=== PATIENT | male | born 1990 | race Caucasian/White ===

== ENCOUNTER 2019-05-31 17:42 | Emergency (ER) | payer SELFPAY ==
[~2019-05-31] VITALS: Ht 170.2 cm; Wt 81.6 kg
[2019-05-31] MEDS ORDERED: FLUORESCEIN 1MG EYE STRIP. OD ONE (18:00)
[2019-05-31] MEDS ORDERED: TETRACAINE 0.5% OPHTH SOLUTION 4ML BOTTLE. OD ONE (18:00)
[2019-05-31 18:05] VITALS: BP 155/72
[2019-05-31] MEDS ORDERED: TETRACAINE 0.5% OPHTH SOLUTION 4ML BOTTLE. ONE (18:18)
[2019-05-31] MEDS ORDERED: FLUORESCEIN 1MG EYE STRIP. ONE (18:18)
[2019-05-31] MEDS ORDERED: POLY10DR EACHEYE (18:38)
--- NOTE | 2019-05-31 18:48 | PHYS DOC ---
Past History Past Medical History: No Pertinent History Past Surgical History: No Surgical History Drug Use: None Adult General Chief Complaint Chief Complaint: EYE PROBLEMS HPI HPI Patient is a 28-year-old male presenting with injury to the right eye he was drilling some metal he wore eye protection but he felt something go into his eye increased pain and redness this is happening to him multiple times before does not wear contacts see nurse's note for complete visual acuity was 20 over 20 in 1 eye and 20/40 in the other Current Medications Current Medications Current Medications Medications (Trade) Dose Ordered Sig/Mariah Start Time Stop Time Status Last Admin Dose Admin Fluorescein Sodium (Ful-Elda 1mg) 1 strip 1X ONCE 05/31/19 18:00 05/31/19 18:01 UNV 05/31/19 18:00 1 STRIP Tetracaine HCl (Tetracaine) 1 drop 1X ONCE 05/31/19 18:00 05/31/19 18:01 UNV 05/31/19 18:00 1 DROP Physical Exam Physical Exam Constitutional: Well developed, well nourished, no acute distress, non-toxic appearance. [] HENT: Normocephalic, atraumatic, bilateral external ears normal, oropharynx moist, no oral exudates, nose normal. [] Eyes: Conjunctivae injected on the right no proptosis there is a very small m etal appearing foreign body at 10:00 on the cornea there is no significant associated corneal abrasion it was removed with an ear curet under close guidance visualization after tetracaine. Patient tolerated very well. Polytrim prescription will be provided lids everted no foreign body there either Extremities: No tenderness, no cyanosis, no clubbing, ROM intact, no edema. [] Neurologic: Alert and oriented X 3, normal motor function, normal sensory function, no focal deficits noted. [] Psychologic: Affect normal, judgement normal, mood normal. [] Current Patient Data Vital Signs Vital Signs Date Time Temp Pulse Resp B/P (MAP) Pulse Ox O2 Delivery O2 Flow Rate FiO2 05/31/19 18:05 97.8 62 22 100 Room Air EKG EKG [] Radiology/Procedures Radiology/Procedures [] Course & Med Decision Making Course & Med Decision Making Pertinent Labs and Imaging studies reviewed. (See chart for details) [] Dragon Disclaimer Dragon Disclaimer This electronic medical record was generated, in whole or in part, using a voice recognition dictation system. Departure Departure: Impression: Primary Impression: Foreign body in cornea Disposition: 01 HOME, SELF-CARE Condition: STABLE Patient Instructions: Eye - Foreign Body, [id number]-vf-[id number] Scripts Polymyxin B Sulf/Trimethoprim (POLYTRIM EYE DROPS) 10 Ml Drops 1 DROP EACHEYE Q6HRS for fb eye for 5 Days, #10 ML Prov: SEBASTIAN MULLER MD 05/31/19 SEBASTIAN MULLER MD May 31, 2019 18:48
== END 2019-05-31 18:57 | disposition home or self-care (01) ==
LOC: ER 17:42
DX: T15.01XA Foreign body in cornea, right eye, initial encounter (principal); X58.XXXA Exposure to other specified factors, initial encounter; Y93.89 Activity, other specified; Y92.89 Other specified places as the place of occurrence of the external cause; Y99.8 Other external cause status
CPT/HCPCS: 65220; 65222; 99284-25

== ENCOUNTER 2019-07-05 12:41 | Emergency (ER) | payer SELFPAY ==
[~2019-07-05] VITALS: Ht 170.2 cm; Wt 93.3 kg
[~2019-07-05 12:41] MED LIST: POLY10DR EACHEYE
--- NOTE | 2019-07-05 13:41 | PHYS DOC ---
Past History Past Medical History: No Pertinent History Past Surgical History: No Surgical History Alcohol Use: None Drug Use: None Adult General Chief Complaint Chief Complaint: COUGH HPI HPI 29-year-old male presents with 3 day history of cough. Patient feels a couple worse and now he feels somewhat short of breath. Overnight, he felt like he was wheezing or having noisy breathing. He has a distant history of asthma as a kid. He hasn't used albuterol in several years. He wants to make sure he doesn't have pneumonia. He did try [id number] medicines without relief. He has no other complaints. Review of Systems Review of Systems Constitutional: Denies fever or chills [] Eyes: Denies change in visual acuity, redness, or eye pain [] HENT: Denies nasal congestion or sore throat [] Respiratory: Cough with shortness of breath [] Cardiovascular: No additional information not addressed in HPI [] GI: Denies abdominal pain, nausea, vomiting, bloody stools or diarrhea [] : Denies dysuria or hematuria [] Musculoskeletal: Denies back pain or joint pain [] Integument: Denies rash or skin lesions [] Neurologic: Denies headache, focal weakness or sensory changes [] Endocrine: Denies polyuria or polydipsia [] All other systems were reviewed and found to be within normal limits, except as documented in this note. Allergies Allergies Allergies Coded Allergies Type Severity Reaction Last Updated Verified No Known Drug Allergies 07/05/19 No Physical Exam Physical Exam Constitutional: Well developed, well nourished, no acute distress, non-toxic appearance. [] HENT: Normocephalic, atraumatic, bilateral external ears normal, oropharynx moist, no oral exudates, nose normal. [] Eyes: PERRLA, EOMI, conjunctiva normal, no discharge. [] Neck: Normal range of motion, no tenderness, supple, no stridor. [] Cardiovascular:Heart rate regular rhythm, no murmur [] Lungs & Thorax: Expiratory crackles at the right base[] Abdomen: Bowel sounds normal, soft, no tenderness, no masses, no pulsatile masses. [] Skin: Warm, dry, no erythema, no rash. [] Back: No tenderness, no CVA tenderness. [] Extremities: No tenderness, no cyanosis, no clubbing, ROM intact, no edema. [] Neurologic: Alert and oriented X 3, normal motor function, normal sensory function, no focal deficits noted. [] Psychologic: Affect normal, judgement normal, mood normal. [] Current Patient Data Vital Signs Vital Signs Date Time Temp Pulse Resp B/P (MAP) Pulse Ox O2 Delivery O2 Flow Rate FiO2 07/05/19 13:00 98.2 88 20 100 Room Air EKG EKG [] Radiology/Procedures Radiology/Procedures [] Impressions: PA and lateral views of the chest. Comparison: None. Indication: Crackles on auscultation on the right chest Findings: The heart size is normal. No pneumothorax or effusion. No air space or interstitial disease. The bony structures are intact. Impression: 1. No acute cardiopulmonary process. Electronically signed by: Guanaco Myers MD (07/05/2019 1:59 PM) [facility] DICTATED AND SIGNED BY: GUANACO MYERS MD DATE: 07/05/19 2623 CC: KEVON RODRIGUEZ DO; PCP,NO ~ Course & Med Decision Making Course & Med Decision Making Pertinent Labs and Imaging studies reviewed. (See chart for details) Patient's chest x-ray is negative for pneumonia. I will treat him with an albuterol inhaler. I will also given prescription for the same. This is respiratory illness with cough. He is stable for discharge at this time. [] Dragon Disclaimer Dragon Disclaimer This electronic medical record was generated, in whole or in part, using a voice recognition dictation system. Departure Departure: Impression: Primary Impression: Viral URI with cough Disposition: HOME, SELF-CARE Condition: STABLE Referrals: PCP,NO (PCP) Patient Instructions: Upper Respiratory Infection, Adult, [id number] Scripts Albuterol Sulfate (PROAIR HFA INHALER) 8.5 Gm Hfa.aer.ad 2 PUFF IH PRN Q4-6HRS PRN for wheezing, #1 INHALER 0 Refills Prov: KEVON RODRIGUEZ DO 07/05/19 KEVON RODRIGUEZ DO Jul 05, 2019 13:41
--- NOTE | 2019-07-05 14:02 | RAD ---
PA and lateral views of the chest. Comparison: None. Indication: Crackles on auscultation on the right chest Findings: The heart size is normal. No pneumothorax or effusion. No air space or interstitial disease. The bony structures are intact. Impression: 1. No acute cardiopulmonary process. Electronically signed by: Boom Qureshi MD (07/05/2019 1:59 PM) [facility]
[2019-07-05] MEDS ORDERED: ALBU2.5V8 IH (14:22)
[2019-07-05] MEDS ORDERED: ALBUTEROL SULFATE 8GM INHALER. INH ONE (14:30)
[2019-07-05 14:37] VITALS: BP 147/88
== END 2019-07-05 14:40 | disposition home or self-care (01) ==
LOC: ER 12:41
DX: J06.9 Acute upper respiratory infection, unspecified (principal); B97.89 Other viral agents as the cause of diseases classified elsewhere
CPT/HCPCS: 71046; 94640; 99284; J7613; 94664